=== PATIENT | male | born 1955 | race African-American/Black ===

== ENCOUNTER 2017-01-27 11:37 | Inpatient (IN) | payer OTHER ==
[~2017-01-27] VITALS: Ht 175.3 cm; Wt 68.8 kg
[~2017-01-27 11:37] MED LIST: ACCUPRIL40 MG PO; GLUCOPHAGE1000 MG PO; HYDROCHLOROTHIA25 MG PO; NEURONTIN300 MG; NORVASC10 MG PO; NOVOLIN N100 UNIT/1 SC; NOVOLOG100 UNIT/3 SC; Neurontin PO; PERCOCET 10/1 TABLET PO; SEROQUEL XR200 MG; SEROQUEL100 MG PO
[2017-01-27 11:54] LABS: POINT-OF-CARE METER ID UU13113778
[2017-01-27 14:26] LABS: HEMATOCRIT 58.6 % (38.0-50.0); MCH 31.3 PG (29.0-34.0); MCHC 34.5 G/DL (30.0-36.0); MCV 90.9 FL (86-99); MEAN PLAT.VOLUME 11.7 uM^3 (9.0-12.4); PLATELET COUNT 66 K/uL (156-360); RBC DIS.WIDTH-CV 12.1 % (11.8-14.6); RBC DIS.WIDTH-SD 39.4 % (39-53); RED BLOOD COUNT 6.45 M/uL (4.00-5.50); WHITE BLOOD COUNT 4.5 K/uL (4.1-10.2)
[2017-01-27 15:53] LABS: CHLORIDE 101 mEq/L (99-109); POTASSIUM 4.3 mEq/L (3.7-5.4); SODIUM 132 mEq/L (136-147)
[2017-01-27 15:56] LABS: ANION GAP 8 MEQ/L (2-14)
[2017-01-27 15:58] LABS: GFR ESTIMATE (CALCULATED) > 59 mL/min/
[2017-01-27 15:59] LABS: UREA NITROGEN (BUN) 19 mg/dL (9-23)
[2017-01-27] MEDS ORDERED: LISINOPRIL20 MG PO (17:33)
[2017-01-27] MEDS ORDERED: HUMALOG100 UNIT/1 SC (17:34)
[2017-01-27 18:51] VITALS: BP 154/72
[2017-01-27 23:35] VITALS: BP 130/61
[2017-01-28 06:07] LABS: HEMATOCRIT 31.8 % (38.0-50.0); MCH 32.1 PG (29.0-34.0); MCHC 34.9 G/DL (30.0-36.0); MCV 91.9 FL (86-99); RBC DIS.WIDTH-SD 40.4 % (39-53); WHITE BLOOD COUNT 7.8 K/uL (4.1-10.2)
[2017-01-28 06:19] LABS: MEAN PLAT.VOLUME 9.1 uM^3 (9.0-12.4); PLATELET COUNT 209 K/uL (156-360); RED BLOOD COUNT 3.46 M/uL (4.00-5.50)
[2017-01-28 06:25] LABS: ANION GAP 8 MEQ/L (2-14); CHLORIDE 106 MEQ/L (99-109); GFR ESTIMATE (CALCULATED) > 59 mL/min/; GLUCOSE 189 mg/dL (70-99); POTASSIUM 4.1 MEQ/L (3.7-5.4); SAMPLE HEMOLYSIS CHECK 0; SAMPLE ICTERIC CHECK 0; SAMPLE LIPEMIA CHECK 0; UREA NITROGEN (BUN) 17 mg/dL (9-23)
[2017-01-28 06:31] LABS: SODIUM 139 MEQ/L (136-147)
[2017-01-28 07:06] VITALS: BP 161/77
[2017-01-28 11:00] VITALS: BP 175/88
[2017-01-28 15:10] VITALS: BP 180/88
[2017-01-28 19:50] VITALS: BP 178/90
[2017-01-29 00:30] VITALS: BP 188/91
[2017-01-29 06:47] VITALS: BP 197/93
[2017-01-29 07:06] LABS: HEMATOCRIT 34.1 % (38.0-50.0); MCH 32.7 PG (29.0-34.0); MCHC 35.8 G/DL (30.0-36.0); MCV 91.4 FL (86-99); MEAN PLAT.VOLUME 9.4 uM^3 (9.0-12.4); PLATELET COUNT 267 K/uL (156-360); RBC DIS.WIDTH-CV 11.9 % (11.8-14.6); RBC DIS.WIDTH-SD 39.9 % (39-53); RED BLOOD COUNT 3.73 M/uL (4.00-5.50); WHITE BLOOD COUNT 9.6 K/uL (4.1-10.2)
[2017-01-29 07:29] LABS: ANION GAP 9 MEQ/L (2-14); CHLORIDE 103 MEQ/L (99-109); GFR ESTIMATE (CALCULATED) > 59 mL/min/; GLUCOSE 128 mg/dL (70-99); POTASSIUM 4.8 MEQ/L (3.7-5.4); SAMPLE HEMOLYSIS CHECK 2; SAMPLE ICTERIC CHECK 0; SAMPLE LIPEMIA CHECK 0; SODIUM 136 MEQ/L (136-147); UREA NITROGEN (BUN) 14 mg/dL (9-23)
[2017-01-29 11:00] VITALS: BP 192/100
[2017-01-29 15:00] VITALS: BP 177/87
[2017-01-29 16:23] LABS: POINT-OF-CARE METER ID UU13113725
[2017-01-29 22:44] LABS: GLUCOSE 434 mg/dL (70-99)
[2017-01-29 22:59] VITALS: BP 172/81
[2017-01-30 06:16] LABS: HEMATOCRIT 35.4 % (38.0-50.0); MCH 30.3 PG (29.0-34.0); MCHC 33.3 G/DL (30.0-36.0); MCV 90.8 FL (86-99); MEAN PLAT.VOLUME 8.9 uM^3 (9.0-12.4); RBC DIS.WIDTH-CV 11.9 % (11.8-14.6); RBC DIS.WIDTH-SD 39.7 % (39-53); WHITE BLOOD COUNT 10.8 K/uL (4.1-10.2)
[2017-01-30 06:17] LABS: PLATELET COUNT 355 K/uL (156-360)
[2017-01-30 06:32] LABS: POINT-OF-CARE USER ID 611181321
[2017-01-30 06:41] LABS: ANION GAP 9 MEQ/L (2-14); CHLORIDE 106 MEQ/L (99-109); GFR ESTIMATE (CALCULATED) > 59 mL/min/; GLUCOSE 54 mg/dL (70-99); POTASSIUM 4.2 MEQ/L (3.7-5.4); SAMPLE HEMOLYSIS CHECK 0; SAMPLE ICTERIC CHECK 0; SAMPLE LIPEMIA CHECK 0; SODIUM 139 MEQ/L (136-147); UREA NITROGEN (BUN) 14 mg/dL (9-23)
[2017-01-30 07:00] LABS: POINT-OF-CARE USER ID 611181321
[2017-01-30 08:46] VITALS: BP 160/78
[2017-01-30 10:34] LABS: POINT-OF-CARE METER ID UU13113725
[2017-01-30 10:52] LABS: POINT-OF-CARE METER ID UU13113725
[2017-01-30 11:23] LABS: POINT-OF-CARE METER ID UU13113725
[2017-01-30 15:35] VITALS: BP 184/95
[2017-01-30 20:01] VITALS: BP 184/102
[2017-01-30 20:30] VITALS: BP 165/99
[2017-01-30 22:16] LABS: POINT-OF-CARE METER ID UU13113675
[2017-01-31 00:35] VITALS: BP 183/91
[2017-01-31 06:25] LABS: HEMATOCRIT 33.3 % (38.0-50.0); MCH 30.8 PG (29.0-34.0); MCHC 33.6 G/DL (30.0-36.0); MCV 91.5 FL (86-99); PLATELET COUNT 343 K/uL (156-360); RBC DIS.WIDTH-SD 40.8 % (39-53); RED BLOOD COUNT 3.64 M/uL (4.00-5.50)
[2017-01-31 07:08] LABS: ANION GAP 10 MEQ/L (2-14); CHLORIDE 100 MEQ/L (99-109); GFR ESTIMATE (CALCULATED) > 59 mL/min/; GLUCOSE 394 mg/dL (70-99); POTASSIUM 4.9 MEQ/L (3.7-5.4); SAMPLE HEMOLYSIS CHECK 0; SAMPLE ICTERIC CHECK 0; SAMPLE LIPEMIA CHECK 0; SODIUM 133 MEQ/L (136-147); UREA NITROGEN (BUN) 14 mg/dL (9-23)
[2017-01-31 07:17] VITALS: BP 138/80
[2017-01-31 15:17] VITALS: BP 163/72
[2017-01-31 21:21] LABS: POINT-OF-CARE METER ID UU13113725
[2017-01-31 23:35] VITALS: BP 161/75
[2017-02-01 07:05] VITALS: BP 167/89
[2017-02-01 12:01] LABS: POINT-OF-CARE METER ID UU13113725
[2017-02-01 15:00] VITALS: BP 177/90
[2017-02-01 21:27] LABS: POINT-OF-CARE METER ID UU13113725
[2017-02-01 23:08] VITALS: BP 177/84
[2017-02-02 06:10] LABS: POINT-OF-CARE METER ID UU13113725
[2017-02-02 07:00] VITALS: BP 175/86
[2017-02-02 07:05] LABS: ANION GAP 9 MEQ/L (2-14); CHLORIDE 101 MEQ/L (99-109); GFR ESTIMATE (CALCULATED) > 59 mL/min/; GLUCOSE 265 mg/dL (70-99); POTASSIUM 4.8 MEQ/L (3.7-5.4); SAMPLE HEMOLYSIS CHECK 0; SAMPLE ICTERIC CHECK 0; SAMPLE LIPEMIA CHECK 0; SODIUM 135 MEQ/L (136-147); UREA NITROGEN (BUN) 18 mg/dL (9-23)
[2017-02-02] MEDS ORDERED: PERCOCET 10/1 TABLET PO (07:23)
[2017-02-02] MEDS ORDERED: NICOTINE PATCH1 EAC1 TD (07:23)
[2017-02-02] MEDS ORDERED: DURICEF1 GM PO (07:23)
[2017-02-02] MEDS ORDERED: PROCARDIA20 MG PO (08:09)
[2017-02-02] MEDS ORDERED: TEST STRIPS MC (10:02)
[2017-02-02] MEDS ORDERED: GLUCOMETER MC (10:02)
[2017-02-02] MEDS ORDERED: NOVOLIN N100 UNITS/ SC (10:02)
[2017-02-02] MEDS ORDERED: NOVOLOG 10100 UNITS/ SC (10:02)
[2017-02-02] MEDS ORDERED: EASY COMFORT I1 EAC4 MC (10:02)
[2017-02-02 11:57] LABS: POINT-OF-CARE METER ID UU13113725
== END 2017-02-02 13:15 | disposition home or self-care (01) | DRG 617 ==
LOC: EME 11:37 → 5EAST 16:14 → EDOF 16:14 → ENRESERV 16:24 → CANRESERV 16:24 → ENRESERV 17:17 → 5EAST 18:14
PROVIDERS: Emergency Medicine; Hospitalist
PROC: 0Y6S0Z0 Detachment at Left 2nd Toe, Complete, Open Approach (ICD-10-PCS; principal; 2017-01-30)
DX: E11.69 Type 2 diabetes mellitus with other specified complication (principal); M86.172 Other acute osteomyelitis, left ankle and foot; L03.116 Cellulitis of left lower limb; L03.032 Cellulitis of left toe; L02.612 Cutaneous abscess of left foot; N17.9 Acute kidney failure, unspecified; E11.51 Type 2 diabetes mellitus with diabetic peripheral angiopathy without gangrene; E11.42 Type 2 diabetes mellitus with diabetic polyneuropathy; E11.65 Type 2 diabetes mellitus with hyperglycemia; I16.0 Hypertensive urgency; I10 Essential (primary) hypertension; E86.0 Dehydration; E87.1 Hypo-osmolality and hyponatremia; D75.1 Secondary polycythemia; J44.9 Chronic obstructive pulmonary disease, unspecified; F20.9 Schizophrenia, unspecified; F17.210 Nicotine dependence, cigarettes, uncomplicated; Z79.4 Long term (current) use of insulin; Z79.84 Long term (current) use of oral hypoglycemic drugs; Z91.14 Patient's other noncompliance with medication regimen; Z86.73 Personal history of transient ischemic attack (TIA), and cerebral infarction without residual deficits
CPT/HCPCS: 73630; 80048; 82948; 84999; 85027; 87040; 87070; 87075; 87205; 88305; 88311; 93005; 93925; 99281; 99285; J0360; J0690; J1644; J1815; J2250; J2270; J2543; J3010; J3370; J7030; J7050; S0020

== ENCOUNTER 2017-02-19 19:33 | Observation (INO) | payer OTHER ==
[~2017-02-19] VITALS: Ht 180.3 cm; Wt 71.0 kg
[~2017-02-19 19:33] MED LIST changes: +DURICEF1 GM PO; +EASY COMFORT I1 EAC4 MC; +GLUCOMETER MC; +HUMALOG100 UNIT/1 SC; +LISINOPRIL20 MG PO; +NEURONTIN400 MG PO; +NICOTINE PATCH1 EAC1 TD; +NOVOLIN N100 UNITS/ SC; +NOVOLOG 10100 UNITS/ SC; -Neurontin PO; +PROCARDIA20 MG PO; +TEST STRIPS MC
[2017-02-19 19:51] LABS: POINT-OF-CARE METER ID UU13113778
[2017-02-19 20:20] LABS: HEMATOCRIT 36.1 % (38.0-50.0); MCH 31.2 PG (29.0-34.0); MCHC 34.3 G/DL (30.0-36.0); MCV 90.9 FL (86-99); RBC DIS.WIDTH-CV 12.2 % (11.8-14.6); RBC DIS.WIDTH-SD 40.9 % (39-53); RED BLOOD COUNT 3.97 M/uL (4.00-5.50); WHITE BLOOD COUNT 6.1 K/uL (4.1-10.2)
[2017-02-19 20:35] LABS: CHLORIDE 100 mEq/L (99-109); POTASSIUM 4.7 mEq/L (3.7-5.4); SODIUM 135 mEq/L (136-147)
[2017-02-19 20:37] LABS: GLUCOSE 374 mg/dL (70-99)
[2017-02-19 20:38] LABS: ANION GAP 14 MEQ/L (2-14)
[2017-02-19 20:40] LABS: SERUM ETHYL ALCOHOL < 10 mg/dL
[2017-02-19 20:41] LABS: GFR ESTIMATE (CALCULATED) > 59 mL/min/
[2017-02-19 20:42] LABS: UREA NITROGEN (BUN) 19 mg/dL (9-23)
[2017-02-19 20:58] LABS: TROP-I INTERPRETATION NEGATIVE; TROPONIN-I < 0.01 ng/mL (0.0-0.30)
[2017-02-19 21:28] LABS: HEMATOLOGY COMMENT 1 SN; MEAN PLAT.VOLUME 9.7 uM^3 (9.0-12.4); PLAT.SUFFICIENCY ADEQUATE
[2017-02-19 21:29] LABS: PLATELET COUNT 239 K/uL (156-360)
[2017-02-19 21:49] LABS: ADD MEDTOX COMMENT Y; AMPHETAMINE NEGATIVE (500 ng/mL); BARBITURATES NEGATIVE (200 ng/mL); BENZODIAZEPINES NEGATIVE (150 ng/mL); COCAINE PRESUMPTIVE POSITIVE (150 ng/mL); INTERNAL CONTROLS VALID? YES; METHADONE NEGATIVE (200 ng/mL); METHAMPHETAMINE NEGATIVE (500 ng/mL); OPIATES (MORPHINE) NEGATIVE (100 ng/mL); OXYCODONE NEGATIVE (100 ng/mL); PHENCYCLIDINE NEGATIVE (25 ng/mL); PROPOXYPHENE NEGATIVE (300 ng/mL); THC CANNABINOIDS PRESUMPTIVE POSITIVE (50 ng/mL); TRICYCLIC ANTIDEPRESSANTS NEGATIVE (300 ng/mL)
[2017-02-19] MEDS ORDERED: HUMULIN N100 UNITS/ SC (22:45)
[2017-02-19] MEDS ORDERED: PROCARDIA20 MG PO (22:46)
[2017-02-19 23:58] LABS: POINT-OF-CARE METER ID UU13113702
[2017-02-20] VITALS (7 sets, daily range): BP systolic 131–198; BP diastolic 73–94
[2017-02-20 06:57] LABS: TROP-I INTERPRETATION NEGATIVE; TROPONIN-I < 0.01 ng/mL (0.0-0.30)
[2017-02-20 08:38] LABS: POINT-OF-CARE METER ID UU14162513
[2017-02-20 13:04] LABS: TROP-I INTERPRETATION NEGATIVE; TROPONIN-I 0.01 ng/mL (0.0-0.30)
[2017-02-20 17:57] LABS: POINT-OF-CARE METER ID UU14162513
[2017-02-20 21:07] LABS: POINT-OF-CARE METER ID UU13113700
[2017-02-21 03:28] VITALS: BP 167/93
[2017-02-21 06:09] LABS: HEMATOCRIT 34.7 % (38.0-50.0); MCH 30.9 PG (29.0-34.0); MCHC 33.4 G/DL (30.0-36.0); MCV 92.3 FL (86-99); MEAN PLAT.VOLUME 9.9 uM^3 (9.0-12.4); PLATELET COUNT 234 K/uL (156-360); RBC DIS.WIDTH-CV 12.4 % (11.8-14.6); RBC DIS.WIDTH-SD 42.1 % (39-53); RED BLOOD COUNT 3.76 M/uL (4.00-5.50); WHITE BLOOD COUNT 6.4 K/uL (4.1-10.2)
[2017-02-21 06:27] LABS: POINT-OF-CARE METER ID UU13113700
[2017-02-21 06:28] LABS: ANION GAP 8 MEQ/L (2-14); CHLORIDE 103 MEQ/L (99-109); GFR ESTIMATE (CALCULATED) > 59 mL/min/; GLUCOSE 293 mg/dL (70-99); SAMPLE HEMOLYSIS CHECK 0; SAMPLE ICTERIC CHECK 0; SAMPLE LIPEMIA CHECK 0; SODIUM 134 MEQ/L (136-147); UREA NITROGEN (BUN) 27 mg/dL (9-23)
[2017-02-21 09:00] VITALS: BP 172/94
[2017-02-21 11:28] VITALS: BP 142/78
[2017-02-21 12:50] LABS: POINT-OF-CARE METER ID UU13113831
[2017-02-21 15:31] VITALS: BP 146/85
[2017-02-21 16:41] LABS: POINT-OF-CARE METER ID UU13113700
== END 2017-02-21 18:19 | disposition home or self-care (01) ==
LOC: EME 19:33 → 5WEST 23:04 → EDOF 23:04 → ENRESERV 23:06 → EDOF 02-20 00:36 → 5WEST 02-20 00:38
PROVIDERS: Hospitalist
DX: R45.851 Suicidal ideations (principal); F32.9 Major depressive disorder, single episode, unspecified; E11.65 Type 2 diabetes mellitus with hyperglycemia; R94.31 Abnormal electrocardiogram [ECG] [EKG]; F14.14 Cocaine abuse with cocaine-induced mood disorder; Z59.0 Homelessness; I10 Essential (primary) hypertension; Z73.89 Other problems related to life management difficulty; Z91.14 Patient's other noncompliance with medication regimen; F12.10 Cannabis abuse, uncomplicated; Z86.19 Personal history of other infectious and parasitic diseases; F17.210 Nicotine dependence, cigarettes, uncomplicated; Z89.422 Acquired absence of other left toe(s); F10.10 Alcohol abuse, uncomplicated; J44.9 Chronic obstructive pulmonary disease, unspecified; Z86.73 Personal history of transient ischemic attack (TIA), and cerebral infarction without residual deficits; R55 Syncope and collapse; I27.2 Other secondary pulmonary hypertension; I34.0 Nonrheumatic mitral (valve) insufficiency; Z79.4 Long term (current) use of insulin; Z83.3 Family history of diabetes mellitus
CPT/HCPCS: 70450; 71275; 80048; 81003; 82948; 84484; 84999; 85027; 85379; 90686; 93005; 93306; 95819; 99281; 99284; G0378; G0480; J0360; J1650; J1815; J7030

== ENCOUNTER 2017-04-15 16:30 | Inpatient (IN) | payer OTHER ==
[~2017-04-15] VITALS: Ht 175.3 cm; Wt 73.0 kg
[~2017-04-15 16:30] MED LIST changes: +HUMULIN N100 UNITS/ SC
[2017-04-15 17:14] LABS: POINT-OF-CARE METER ID UU13113747
[2017-04-15 17:32] LABS: CARBON DIOXIDE (BICARBONATE) 29.8 MEQ/L (20-31)
[2017-04-15 17:49] LABS: CHLORIDE 97 mEq/L (99-109); POTASSIUM 5.4 mEq/L (3.7-5.4); SODIUM 133 mEq/L (136-147)
[2017-04-15 17:52] LABS: GLUCOSE 322 mg/dL (70-99)
[2017-04-15 17:53] LABS: ANION GAP 13 MEQ/L (2-14)
[2017-04-15 17:54] LABS: TOTAL BILIRUBIN 0.5 mg/dL (0.0-1.0)
[2017-04-15 17:55] LABS: ALKALINE PHOSPHATASE 151 IU/L (3-129); GFR ESTIMATE (CALCULATED) 53 mL/min/
[2017-04-15 17:57] LABS: DIRECT BILIRUBIN 0.2 mg/dL (0.0-0.3); UREA NITROGEN (BUN) 18 mg/dL (9-23)
[2017-04-15 17:59] LABS: CREATINE KINASE 836 IU/L (1-294); LIPASE 12 U/L (1.0-51.0); TOTAL CK 836 IU/L (1-294)
[2017-04-15 18:06] LABS: CK-MB 7.1 ng/mL (0.0-4.9)
[2017-04-15 18:45] LABS: EOSINOPHIL (%) 0 % (0-5); HEMATOCRIT 42.2 % (38.0-50.0); IMMATURE GRANULOCYTE (%) 0.4 % (0.0-0.7); IMMATURE GRANULOCYTE COUNT 0.1 K/uL; INSTRUMENT ABS NEUTROPHIL CT 10.5 K/uL; LYMPHOCYTE COUNT 0.9 K/uL (1.0-2.8); MCH 30.4 PG (29.0-34.0); MCHC 34.6 G/DL (30.0-36.0); MCV 87.7 FL (86-99); MEAN PLAT.VOLUME 9.1 uM^3 (9.0-12.4); MONOCYTE COUNT 0.6 K/uL (0-0.8); NEUTROPHIL (%) 87.1 % (45-76); NEUTROPHIL COUNT 10.5 K/uL (1.8-6.4); PLATELET COUNT 310 K/uL (156-360); RBC DIS.WIDTH-SD 38.7 % (39-53); RED BLOOD COUNT 4.81 M/uL (4.00-5.50); WHITE BLOOD COUNT 12.1 K/uL (4.1-10.2)
[2017-04-15 18:59] LABS: ADD MIUA? YES; BILIRUBIN NEGATIVE; BLOOD MODERATE; COLOR YELLOW ((YELLOW)); GLUCOSE (STRIP) >=500; KETONES 5; LEUKOCYTES NEGATIVE; NITRITE NEGATIVE; PROTEIN (STRIP) >=500; UROBILINOGEN 0.2 MG/DL (0.2-1.0)
[2017-04-15 19:12] LABS: BACTERIA NONE SEEN /HPF; EPITHELIAL CELLS RARE /HPF; HYALINE CASTS 0-5 /LPF; MUCUS NONE SEEN /LPF; RED BLOOD CELLS 15-20 /HPF (0-5); UCUL ADDED? NO; WHITE BLOOD CELLS 0-5 /HPF (0-5)
[2017-04-15 19:14] LABS: ADD MEDTOX COMMENT Y; AMPHETAMINE NEGATIVE (500 ng/mL); BARBITURATES NEGATIVE (200 ng/mL); BENZODIAZEPINES NEGATIVE (150 ng/mL); COCAINE PRESUMPTIVE POSITIVE (150 ng/mL); INTERNAL CONTROLS VALID? YES; METHADONE NEGATIVE (200 ng/mL); METHAMPHETAMINE NEGATIVE (500 ng/mL); OPIATES (MORPHINE) PRESUMPTIVE POSITIVE (100 ng/mL); OXYCODONE NEGATIVE (100 ng/mL); PHENCYCLIDINE NEGATIVE (25 ng/mL); PROPOXYPHENE NEGATIVE (300 ng/mL); THC CANNABINOIDS PRESUMPTIVE POSITIVE (50 ng/mL); TRICYCLIC ANTIDEPRESSANTS NEGATIVE (300 ng/mL)
[2017-04-15 22:16] LABS: POINT-OF-CARE METER ID UU13113747
[2017-04-15 22:20] VITALS: BP 180/99
[2017-04-15 22:30] VITALS: BP 180/91
[2017-04-15 22:50] VITALS: BP 172/94
[2017-04-15 23:15] VITALS: BP 153/98
[2017-04-15 23:48] LABS: METH RESISTANT S AUREUS PCR NEGATIVE (NEGATIVE)
[2017-04-15 23:54] LABS: PROBE CHECK PASS; SPECIMEN PROCESSING CONTROL PASS
[2017-04-16] VITALS (26 sets, daily range): BP systolic 126–192; BP diastolic 71–115
[2017-04-16 05:19] LABS: EOSINOPHIL (%) 0 % (0-5); HEMATOCRIT 38.3 % (38.0-50.0); IMMATURE GRANULOCYTE (%) 0.5 % (0.0-0.7); IMMATURE GRANULOCYTE COUNT 0.1 K/uL; LYMPHOCYTE COUNT 0.9 K/uL (1.0-2.8); MCH 30.9 PG (29.0-34.0); MCV 88.2 FL (86-99); MEAN PLAT.VOLUME 9.7 uM^3 (9.0-12.4); MONOCYTE COUNT 0.5 K/uL (0-0.8); NEUTROPHIL (%) 85.7 % (45-76); PLATELET COUNT 328 K/uL (156-360); RBC DIS.WIDTH-CV 11.9 % (11.8-14.6); RBC DIS.WIDTH-SD 38.4 % (39-53); RED BLOOD COUNT 4.34 M/uL (4.00-5.50); WHITE BLOOD COUNT 10.5 K/uL (4.1-10.2)
[2017-04-16 05:33] LABS: CHLORIDE 101 mEq/L (99-109); SODIUM 133 mEq/L (136-147)
[2017-04-16 05:36] LABS: ANION GAP 10 MEQ/L (2-14)
[2017-04-16 05:37] LABS: TOTAL BILIRUBIN 0.5 mg/dL (0.0-1.0)
[2017-04-16 05:38] LABS: ALKALINE PHOSPHATASE 121 IU/L (3-129)
[2017-04-16 05:39] LABS: GFR ESTIMATE (CALCULATED) 47 mL/min/
[2017-04-16 05:40] LABS: UREA NITROGEN (BUN) 25 mg/dL (9-23)
[2017-04-16 05:41] LABS: GLUCOSE 431 mg/dL (70-99)
[2017-04-16] MEDS ORDERED: LISINOPRIL40 MG PO (06:16)
[2017-04-16] MEDS ORDERED: TIZANIDINE HCL4 MG PO (06:18)
[2017-04-16] MEDS ORDERED: METFORMIN HCL1000 MG PO (06:18)
[2017-04-16] MEDS ORDERED: NOVOLOG PE100 UNITS/ SC (06:19)
[2017-04-16 09:08] LABS: POINT-OF-CARE METER ID UU14208751
[2017-04-16 12:00] LABS: POINT-OF-CARE METER ID UU14208751
[2017-04-16 16:40] LABS: POINT-OF-CARE METER ID UU14208751
[2017-04-16 22:45] LABS: POINT-OF-CARE METER ID UU14174217
[2017-04-17] VITALS (18 sets, daily range): BP systolic 123–191; BP diastolic 80–108
[2017-04-17 05:42] LABS: ANION GAP 9 MEQ/L (2-14); CHLORIDE 101 MEQ/L (99-109); GFR ESTIMATE (CALCULATED) > 59 mL/min/; GLUCOSE 241 mg/dL (70-99); POTASSIUM 4.3 MEQ/L (3.7-5.4); SAMPLE HEMOLYSIS CHECK 0; SAMPLE ICTERIC CHECK 0; SAMPLE LIPEMIA CHECK 0; SODIUM 135 MEQ/L (136-147); UREA NITROGEN (BUN) 28 mg/dL (9-23)
[2017-04-17 06:39] LABS: POINT-OF-CARE METER ID UU14208751
[2017-04-17 09:12] LABS: Estimated Average Glucose 292 mg/dL (70-123); HEMOGLOBIN A1c (GLYCOHEMOGLOB) 11.8 % HGB (Below 5.7)
[2017-04-17 11:41] LABS: POINT-OF-CARE METER ID UU13113731
[2017-04-17 18:08] LABS: POINT-OF-CARE METER ID UU14174217
[2017-04-17 22:31] LABS: POINT-OF-CARE METER ID UU13113731
[2017-04-18] VITALS (15 sets, daily range): BP systolic 133–187; BP diastolic 77–101
[2017-04-18 05:44] LABS: POINT-OF-CARE METER ID UU14208751
[2017-04-18 06:36] LABS: EOSINOPHIL COUNT 0.1 K/uL (0-0.3); HEMATOCRIT 35.4 % (38.0-50.0); IMMATURE GRANULOCYTE (%) 0.4 % (0.0-0.7); INSTRUMENT ABS NEUTROPHIL CT 3.3 K/uL; LYMPHOCYTE COUNT 1.4 K/uL (1.0-2.8); MCH 30.5 PG (29.0-34.0); MCHC 33.9 G/DL (30.0-36.0); MCV 89.8 FL (86-99); MEAN PLAT.VOLUME 9.2 uM^3 (9.0-12.4); MONOCYTE (%) 6.5 % (3-12); MONOCYTE COUNT 0.3 K/uL (0-0.8); NEUTROPHIL (%) 64.1 % (45-76); NEUTROPHIL COUNT 3.3 K/uL (1.8-6.4); PLATELET COUNT 258 K/uL (156-360); RBC DIS.WIDTH-SD 39.3 % (39-53); RED BLOOD COUNT 3.94 M/uL (4.00-5.50); WHITE BLOOD COUNT 5.2 K/uL (4.1-10.2)
[2017-04-18 07:04] LABS: ANION GAP 6 MEQ/L (2-14); CHLORIDE 96 MEQ/L (99-109); POTASSIUM 4.3 MEQ/L (3.7-5.4); SAMPLE HEMOLYSIS CHECK 0; SAMPLE ICTERIC CHECK 0; SAMPLE LIPEMIA CHECK 0; SODIUM 129 MEQ/L (136-147)
[2017-04-18 07:11] LABS: GFR ESTIMATE (CALCULATED) > 59 mL/min/; GLUCOSE 399 mg/dL (70-99); UREA NITROGEN (BUN) 24 mg/dL (9-23)
[2017-04-18 12:25] LABS: POINT-OF-CARE METER ID UU14208751
[2017-04-18 17:40] LABS: POINT-OF-CARE METER ID UU13113731
[2017-04-18 22:06] LABS: POINT-OF-CARE METER ID UU14314082
[2017-04-19] VITALS (8 sets, daily range): BP systolic 140–178; BP diastolic 73–95
[2017-04-19 03:41] LABS: POINT-OF-CARE METER ID UU14174216
[2017-04-19 06:26] LABS: ANION GAP 6 MEQ/L (2-14); CHLORIDE 98 MEQ/L (99-109); GFR ESTIMATE (CALCULATED) 53 mL/min/; GLUCOSE 398 mg/dL (70-99); SAMPLE HEMOLYSIS CHECK 0; SAMPLE ICTERIC CHECK 0; SAMPLE LIPEMIA CHECK 0; SODIUM 130 MEQ/L (136-147); UREA NITROGEN (BUN) 30 mg/dL (9-23)
[2017-04-19 08:09] LABS: POINT-OF-CARE METER ID UU14314088
[2017-04-19 10:49] LABS: CREATINE KINASE 205 IU/L (1-294)
[2017-04-19 11:07] LABS: POINT-OF-CARE METER ID UU14174216
[2017-04-19 16:26] LABS: POINT-OF-CARE METER ID UU14174216
[2017-04-20 03:35] VITALS: BP 180/91
[2017-04-20 05:57] LABS: EOSINOPHIL (%) 1.8 % (0-5); EOSINOPHIL COUNT 0.1 K/uL (0-0.3); HEMATOCRIT 33.8 % (38.0-50.0); IMMATURE GRANULOCYTE (%) 0.7 % (0.0-0.7); INSTRUMENT ABS NEUTROPHIL CT 3.5 K/uL; LYMPHOCYTE COUNT 1.7 K/uL (1.0-2.8); MCH 30.2 PG (29.0-34.0); MCV 88.7 FL (86-99); MEAN PLAT.VOLUME 9.7 uM^3 (9.0-12.4); MONOCYTE (%) 9.9 % (3-12); MONOCYTE COUNT 0.6 K/uL (0-0.8); NEUTROPHIL (%) 58.6 % (45-76); NEUTROPHIL COUNT 3.5 K/uL (1.8-6.4); PLATELET COUNT 289 K/uL (156-360); RBC DIS.WIDTH-CV 12.1 % (11.8-14.6); RBC DIS.WIDTH-SD 38.5 % (39-53); RED BLOOD COUNT 3.81 M/uL (4.00-5.50)
[2017-04-20 06:33] LABS: ALKALINE PHOSPHATASE 97 IU/L (3-129); ANION GAP 7 MEQ/L (2-14); CHLORIDE 105 MEQ/L (99-109); GFR ESTIMATE (CALCULATED) > 59 mL/min/; GLUCOSE 222 mg/dL (70-99); POTASSIUM 4.7 MEQ/L (3.7-5.4); SAMPLE HEMOLYSIS CHECK 0; SAMPLE ICTERIC CHECK 0; SAMPLE LIPEMIA CHECK 0; SODIUM 133 MEQ/L (136-147); TOTAL BILIRUBIN 0.2 MG/DL (0.0-1.0); UREA NITROGEN (BUN) 33 mg/dL (9-23)
[2017-04-20 07:36] VITALS: BP 171/93
[2017-04-20 07:43] LABS: POINT-OF-CARE METER ID UU13113781
[2017-04-20 09:50] LABS: POINT-OF-CARE METER ID UU14174216
[2017-04-20 10:53] VITALS: BP 160/82
[2017-04-20 11:42] LABS: POINT-OF-CARE METER ID UU13113781
[2017-04-20 15:25] VITALS: BP 155/70
[2017-04-20 16:25] LABS: POINT-OF-CARE METER ID UU13113781
[2017-04-20 20:20] LABS: POINT-OF-CARE METER ID UU14174216
[2017-04-20 20:52] LABS: POINT-OF-CARE METER ID UU13113781
[2017-04-20 21:12] VITALS: BP 151/52
[2017-04-21] VITALS (7 sets, daily range): BP systolic 150–170; BP diastolic 60–99
[2017-04-21 05:51] LABS: EOSINOPHIL (%) 2.4 % (0-5); EOSINOPHIL COUNT 0.2 K/uL (0-0.3); HEMATOCRIT 36.5 % (38.0-50.0); IMMATURE GRANULOCYTE (%) 1.2 % (0.0-0.7); IMMATURE GRANULOCYTE COUNT 0.1 K/uL; INSTRUMENT ABS NEUTROPHIL CT 4.4 K/uL; LYMPHOCYTE COUNT 2.1 K/uL (1.0-2.8); MCH 30.9 PG (29.0-34.0); MCHC 34.5 G/DL (30.0-36.0); MCV 89.5 FL (86-99); MEAN PLAT.VOLUME 9.3 uM^3 (9.0-12.4); MONOCYTE (%) 9.4 % (3-12); MONOCYTE COUNT 0.7 K/uL (0-0.8); NEUTROPHIL (%) 58.7 % (45-76); NEUTROPHIL COUNT 4.4 K/uL (1.8-6.4); PLATELET COUNT 290 K/uL (156-360); RBC DIS.WIDTH-CV 12.3 % (11.8-14.6); RED BLOOD COUNT 4.08 M/uL (4.00-5.50); WHITE BLOOD COUNT 7.5 K/uL (4.1-10.2)
[2017-04-21 06:25] LABS: ANION GAP 9 MEQ/L (2-14); CHLORIDE 105 MEQ/L (99-109); GFR ESTIMATE (CALCULATED) > 59 mL/min/; GLUCOSE 68 mg/dL (70-99); POTASSIUM 4.5 MEQ/L (3.7-5.4); SAMPLE HEMOLYSIS CHECK 0; SAMPLE ICTERIC CHECK 0; SAMPLE LIPEMIA CHECK 0; SODIUM 139 MEQ/L (136-147); UREA NITROGEN (BUN) 23 mg/dL (9-23)
[2017-04-21 07:39] LABS: POINT-OF-CARE METER ID UU13113781; POINT-OF-CARE USER ID NUTSLF44
[2017-04-21 11:25] LABS: POINT-OF-CARE METER ID UU13113781
[2017-04-21 16:41] LABS: POINT-OF-CARE METER ID UU13113698
[2017-04-21 17:04] LABS: POINT-OF-CARE METER ID UU13113781; POINT-OF-CARE USER ID NUTSLF44
[2017-04-21 21:10] LABS: POINT-OF-CARE METER ID UU14174216
[2017-04-22 00:04] VITALS: BP 178/96
[2017-04-22 01:27] VITALS: BP 162/92
[2017-04-22 05:52] LABS: POINT-OF-CARE METER ID UU13113725
[2017-04-22 06:12] LABS: POINT-OF-CARE METER ID UU13113725
[2017-04-22 06:15] LABS: BASOPHIL COUNT 0.1 K/uL (0-0.1); EOSINOPHIL (%) 2.2 % (0-5); EOSINOPHIL COUNT 0.2 K/uL (0-0.3); HEMATOCRIT 35.9 % (38.0-50.0); IMMATURE GRANULOCYTE (%) 0.8 % (0.0-0.7); IMMATURE GRANULOCYTE COUNT 0.1 K/uL; INSTRUMENT ABS NEUTROPHIL CT 5.7 K/uL; LYMPHOCYTE COUNT 2.9 K/uL (1.0-2.8); MCH 30.4 PG (29.0-34.0); MCHC 34.3 G/DL (30.0-36.0); MCV 88.9 FL (86-99); MEAN PLAT.VOLUME 9.2 uM^3 (9.0-12.4); NEUTROPHIL (%) 57.5 % (45-76); NEUTROPHIL COUNT 5.7 K/uL (1.8-6.4); PLATELET COUNT 343 K/uL (156-360); RBC DIS.WIDTH-CV 12.6 % (11.8-14.6); RBC DIS.WIDTH-SD 41.1 % (39-53); RED BLOOD COUNT 4.04 M/uL (4.00-5.50); WHITE BLOOD COUNT 9.9 K/uL (4.1-10.2)
[2017-04-22 06:42] LABS: ANION GAP 9 MEQ/L (2-14); CHLORIDE 105 MEQ/L (99-109); GFR ESTIMATE (CALCULATED) > 59 mL/min/; GLUCOSE 48 mg/dL (70-99); POTASSIUM 4.5 MEQ/L (3.7-5.4); SAMPLE HEMOLYSIS CHECK 0; SAMPLE ICTERIC CHECK 0; SAMPLE LIPEMIA CHECK 0; SODIUM 140 MEQ/L (136-147); UREA NITROGEN (BUN) 19 mg/dL (9-23)
[2017-04-22 07:06] VITALS: BP 126/67
[2017-04-22 10:19] VITALS: BP 145/70
[2017-04-22 10:56] VITALS: BP 138/64
[2017-04-22 11:21] LABS: POINT-OF-CARE METER ID UU13113725
[2017-04-22] MEDS ORDERED: VENTOLIN HFA18 GM IH (12:10)
[2017-04-22] MEDS ORDERED: NOVOLOG PE100 UNITS/ SC (12:10)
[2017-04-22] MEDS ORDERED: HYGROTON25 MG PO (12:10)
[2017-04-22] MEDS ORDERED: LEVEMIR100 UNIT/2 SC (12:10)
[2017-04-22] MEDS ORDERED: LISINOPRIL40 MG PO (12:10)
[2017-04-22] MEDS ORDERED: APRESOLINE50 MG PO (12:10)
[2017-04-22] MEDS ORDERED: AMLODIPINE BESY10 MG PO (12:10)
[2017-04-22] MEDS ORDERED: HUMALOG JU100 UNIT/1 SC (13:23)
[2017-04-22] MEDS ORDERED: LANTUS 3 M100 UNITS1 SC (13:24)
[2017-04-22 15:03] VITALS: BP 178/87
== END 2017-04-22 15:23 | disposition home or self-care (01) | DRG 78 ==
LOC: EME 16:30 → 4WEST 20:29 → 4EAST 20:29 → EDOF 20:29 → ENRESERV 20:43 → 4WEST 22:15 → ENRESERV 04-19 → 4EAST 04-19 00:39 → ENRESERV 04-20 21:25 → CANRESERV 04-20 22:18 → ENRESERV 04-20 23:03 → 5EAST 04-21 21:16
PROVIDERS: Emergency Medicine; Internal Medicine; Internal Medicine Critical Care Medicine; Specialist
DX: I67.4 Hypertensive encephalopathy (principal); I16.1 Hypertensive emergency; N17.9 Acute kidney failure, unspecified; M62.82 Rhabdomyolysis; E87.2 Acidosis; F11.10 Opioid abuse, uncomplicated; F12.20 Cannabis dependence, uncomplicated; F14.20 Cocaine dependence, uncomplicated; Z91.11 Patient's noncompliance with dietary regimen; Z91.14 Patient's other noncompliance with medication regimen; I12.9 Hypertensive chronic kidney disease with stage 1 through stage 4 chronic kidney disease, or unspecified chronic kidney disease; E11.22 Type 2 diabetes mellitus with diabetic chronic kidney disease; N18.9 Chronic kidney disease, unspecified; E11.319 Type 2 diabetes mellitus with unspecified diabetic retinopathy without macular edema; E11.40 Type 2 diabetes mellitus with diabetic neuropathy, unspecified; E11.65 Type 2 diabetes mellitus with hyperglycemia; J43.9 Emphysema, unspecified; G43.909 Migraine, unspecified, not intractable, without status migrainosus; F20.9 Schizophrenia, unspecified; F32.9 Major depressive disorder, single episode, unspecified; F41.9 Anxiety disorder, unspecified; F17.200 Nicotine dependence, unspecified, uncomplicated; Z79.4 Long term (current) use of insulin; Z83.3 Family history of diabetes mellitus; Z86.73 Personal history of transient ischemic attack (TIA), and cerebral infarction without residual deficits
CPT/HCPCS: 70450; 71010; 80048; 80053; 80076; 81003; 82550; 82553; 82803; 82948; 83036; 83605; 83690; 83735; 84999; 85025; 87040; 87070; 87086; 87205; 87641; 93005; 99281; 99285; J0360; J0696; J1644; J1815; J2060; J7030; J7050; J7120